=== PATIENT | male | born 1985 | race Native Hawaiian/Other Pacific Islander ===

== ENCOUNTER 2018-07-29 07:05 | Outpatient (CLI) | payer OTHER ==
[~2018-07-29 07:05] MED LIST: AMOX875T8 PO; Z-PAK PO
[2018-07-29 08:00] LABS: PLATELET COUNT 284 K/uL (142-355)
== END 2018-07-29 23:11 | disposition home or self-care (01) ==
LOC: LABW 07:05
PROVIDERS: Internal Medicine
DX: I10 Essential (primary) hypertension (principal)
CPT/HCPCS: 36415; 80053; 80061; 81000; 84443; 84550; 85027

== ENCOUNTER 2018-08-26 07:55 | Outpatient (CLI) | payer OTHER | END 2018-08-26 21:40 | disposition home or self-care (01) | LOC: RESP 07:55 | DX: I10 Essential (primary) hypertension (principal) | CPT/HCPCS: 93306 ==

== ENCOUNTER 2018-12-16 16:33 | Outpatient (CLI) | payer OTHER | END 2018-12-16 23:09 | disposition home or self-care (01) | LOC: LABW 16:33 | DX: N20.0 Calculus of kidney (principal) | CPT/HCPCS: 82360 ==

== ENCOUNTER 2022-10-31 15:51 | Outpatient (CLI) | payer OTHER | END 2022-10-31 19:23 | disposition home or self-care (01) | LOC: CT 15:51 | PROVIDERS: ATTEND Internal Medicine | DX: R31.9 Hematuria, unspecified (principal) ==

== ENCOUNTER 2022-12-05 14:18 | Outpatient (CLI) | payer OTHER | END 2022-12-05 19:29 | disposition home or self-care (01) | LOC: MRI 14:18 | PROVIDERS: ATTEND Internal Medicine | DX: R51.9 Headache, unspecified (principal) | CPT/HCPCS: 36415; 82565; 84520; A9576 ==